=== PATIENT | female | born 1970 | race Two or more races ===

== ENCOUNTER → 2024-09-28 | Outpatient (CLI) | payer BC, SELFPAY ==
--- NOTE | 2024-09-28 10:30 | XR_ITS ---
Examination: Screening digital mammography, bilateral Computer aided detection 3-D breast Tomosynthesis, bilateral Date and time of exam: September 28, 2024 1022 hours Compared to mammograms dating to December 11, 2018 Indication: Screening Technique: Nonmagnified MLO, CC views of the breasts to been obtained, reconstructed from 3-D Tomosynthesis images. R2 computer aided detection program utilized for evaluation of suspicious masses and/or abnormal calcifications. 3-D Tomosynthesis images obtained. Findings: The breasts are heterogeneously dense, which may obscure small masses Asymmetric glandular tissue upper outer right breast is again depicted Benign calcifications The breast architecture is nodular Impression: BI-RADS Category 0: Incomplete: Need additional evaluation Recommend bilateral breast sonography follow-up given the heterogeneously dense nodular breast architecture
== END | disposition home or self-care (01) ==
LOC: CDIM 10:06
PROVIDERS: Referring Provider Family Medicine; Visit Provider Family Medicine
DX: Z12.31 Encounter for screening mammogram for malignant neoplasm of breast (principal); R92.333 Mammographic heterogeneous density, bilateral breasts; R92.8 Other abnormal and inconclusive findings on diagnostic imaging of breast
CPT/HCPCS: 77063; 77067

== ENCOUNTER → 2024-10-11 | Outpatient (CLI) | payer BC, SELFPAY ==
--- NOTE | 2024-10-11 11:00 | XR_ITS ---
Examination: Breast ultrasound complete, bilateral Date and time of exam: October 11, 2019 5:11 AM INDICATIONS: Asymmetric glandular tissue upper outer right breast mammogram September 28, 2024 Technique: Real-time grayscale ultrasonographic imaging bilateral breasts, including all 4 quadrants as well as nipple retroareolar and axillary regions. Findings: Sonographic images right breast No cystic or solid mass Sonographic images left breast 5:00 probable glandular tissue 7 x 3 x 7 mm IMPRESSION: BI-RADS Category 3: Probably benign findings One additional 6 month left breast sonogram follow-up is needed to document stability of 5:00 mass versus glandular tissue
== END | disposition home or self-care (01) ==
LOC: CDIM 10:49
PROVIDERS: PCP Family Medicine; Referring Provider Family Medicine; Visit Provider Family Medicine
DX: N63.23 Unspecified lump in the left breast, lower outer quadrant (principal)
CPT/HCPCS: 76641

== ENCOUNTER → 2025-04-11 | Outpatient (CLI) | payer BC, SELFPAY ==
--- NOTE | 2025-04-11 12:30 | XR_ITS ---
Examination: Breast ultrasound, unilateral, left complete Date and time of exam: April 11, 2025 1259 hours INDICATIONS: Mammogram September 28, 2024 focal asymmetry upper outer left breast, breast sonogram October 11, 2024 probable glandular tissue 5:00 position left breast Technique: Real-time mark scale ultrasonographic imaging performed left breast including all 4 quadrants as well as nipple retroareolar and axillary region. Findings: No cystic or solid mass IMPRESSION: BI-RADS Category 1: Negative study
== END | disposition home or self-care (01) ==
LOC: CDIM 12:26
PROVIDERS: PCP Family Medicine; Referring Provider Family Medicine; Visit Provider Family Medicine
DX: R92.2 Inconclusive mammogram (principal)
CPT/HCPCS: 76641